=== PATIENT | female | born 1950 | race Caucasian/White ===

== ENCOUNTER 2022-07-06 19:49 | Emergency (ER) | payer MEDICARE ==
[~2022-07-06 19:49] MED LIST: ALLOPURINOL100 MG PO; ASPIRIN325 MG PO; MOBIC15 MG PO; PERCOCET 5-3251 EACH PO; TOPROL XL100 MG PO; ZOFRAN4 MG PO
[2022-07-06 20:18] LABS: BASOPHIL 0.6 % (0-2); EOSINOPHIL 2.5 % (0-7); HCT 44.3 % (37.0-47.0); HGB 14.9 g/dl (12.5-16.0); LYMPHOCYTE 21.2 % (15-48); MCH 31.8 pg (25.0-31.0); MCHC 33.6 g/dL (32.0-36.0); MCV 94.7 fL (78.0-100.0); MPV 11.2 fL (6.0-9.5); NEUTROPHIL 64.5 % (41-80); NRBC 0; PLT 178 K/uL (150-400); RBC 4.68 M/uL (4.20-5.40); RDW 13.2 % (11.5-14.0); WBC 8.5 K/uL (4.0-10.5)
[2022-07-06 20:43] LABS: BUN/CREAT RATIO (CALC) 25.3 RATIO; CREATININE 0.87 mg/dL (0.51-0.95); POTASSIUM 3.7 mmol/L (3.5-5.1)
[2022-07-06 21:19] LABS: CORONAVIRUS 2019 SARS-COV-2 NEGATIVE (NEGATIVE); INFLUENZA A NAA NEGATIVE (NEGATIVE)
[2022-07-06] MEDS ORDERED: VALACYCLOVIR1000 MG PO (21:25)
[2022-07-06] MEDS ORDERED: PREDNISONE20 MG PO (21:25)
[2022-07-06] MEDS ORDERED: PERCOCET 5-3251 EACH PO (21:26)
== END 2022-07-06 21:35 | disposition home or self-care (01) ==
LOC: FER 19:49
PROVIDERS: Internal Medicine
DX: B02.9 Zoster without complications (principal); I10 Essential (primary) hypertension; Z20.822 Contact with and (suspected) exposure to COVID-19; Z79.899 Other long term (current) drug therapy
CPT/HCPCS: 36415; 71045; 80048; 84484; 85025; J1885; J2405; U0002